=== PATIENT | male | born 1950 | race Hispanic/Latino ===

== ENCOUNTER → 2019-01-24 | Day surgery (SDC) | payer BC, MEDICARE ==
[2019-01-22 09:43] LABS: BASOPHILS % 0.7 % (0.0-1.0); EOSINOPHILS # (AUTO) 0.1 (0.0-0.4); EOSINOPHILS % 1.1 % (0.0-6.0); HEMATOCRIT 41.7 % (38.2-49.6); HEMOGLOBIN 13.9 g/dL (14.0-18.0); LYMPHOCYTES # (AUTO) 1.4 (1.0-3.2); LYMPHOCYTES % 32.4 % (18.0-39.1); MEAN CORPUSCULAR HEMOGLOBIN 29.1 pg (28-32); MEAN CORPUSCULAR HGB CONC 33.3 g/dL (31-35); MEAN CORPUSCULAR VOLUME 87.4 fL (81-99); MONOCYTES # (AUTO) 0.5 (0.2-0.8); MONOCYTES % 10.8 % (4.4-11.3); NEUTROPHILS # (AUTO) 2.4 (2.1-6.9); NEUTROPHILS % 54.8 % (38.7-80.0); PLATELET COUNT 182 x10e3/uL (140-360); RED BLOOD COUNT 4.77 x10e6/uL (4.3-5.7)
[2019-01-22 09:57] LABS: ANION GAP 12.1 mmol/L (8-16); BLOOD UREA NITROGEN 11 mg/dL (7-26); BUN/CREATININE RATIO 13 (6-25); CALCIUM 9.5 mg/dL (8.4-10.2); CARBON DIOXIDE 25 mmol/L (22-29); CHLORIDE 103 mmol/L (98-107); CREATININE, SERUM 0.85 mg/dL (0.72-1.25); EST GLOMERULAR FILTRATION RATE > 60 ML/MIN (60-); GLUCOSE 127 mg/dL (74-118); POTASSIUM 4.1 mmol/L (3.5-5.1); SODIUM 136 mmol/L (136-145)
--- NOTE | 2019-01-22 10:24 | Diagnostic Imaging Report ---
EXAMINATION: CHEST 2 VIEWS INDICATION: Pre-operative COMPARISON: None FINDINGS: LINES/TUBES:None LUNGS:The lungs are well-inflated. No focal consolidation or pulmonary edema. PLEURA:No pleural effusion or pneumothorax. MEDIASTINUM:The cardiomediastinal silhouette appears normal in size and shape. BONES/SOFT TISSUES:No acute osseous injury. Postoperative changes of the right shoulder. ABDOMEN:No free air under the diaphragm. IMPRESSION: No focal pneumonia or pulmonary edema. Signed by: Beata Li MD on 01/22/2019 10:20 AM
[~2019-01-24] MED LIST: ACETAMINOPHEN 1000 MG/100 ML 100 ML IV ONE; ACETAMINOPHEN 1000 MG/100 ML IV ONE; BUPIVACAINE HCL 0.5% INJ 30 ML VIAL INJ ONE; CEFAZOLIN SOD 1 GM/NS 50ML 100 ML IV ONE; CRESTOR20 MG; DEXAMETHASONE SOD PHOS INJ 4 MG/ML VIAL ONE; FENTANYL CITRATE/PF 100MCG/2 ML INJ ONE; GLIPIZIDE5 MG; HYDROCODON-ACE1 EAC9; JANUMET XR 50-1 EAC1 PO; LEVEMIR100 UNIT/1 SC; LIDOCAINE HCL 2% LOCAL INJ 5 ML SDV VIAL INJ ONE; METFORMIN HCL1000 MG; MIDAZOLAM HCL 2 MG/2 ML VIAL ONE; NEOSTIGMINE 1 MG/ML 10ML VIAL ONE; NOVOLOG SC; ONDANSETRON HCL INJ 2MG/ML 2ML 2 MG/ML VIAL ONE; ONGLYZA5 MG; PROPOFOL IV EMULSION 10 MG/ML 20 ML VIAL ONE; SEVOFLURANE INHAL SOLN 250 ML PEN BTL ONE
--- OUTSIDE RECORDS SUMMARY | 2019-01-24 11:31 | XMS REPORT ---
Author Author [facility] Address Unknown Phone Unavailable Care Team Providers Care Cashier Clerk Name Role Phone LATOSHA GREGORIO Unavailable Unavailable Problems This patient has no known problems. Allergies, Adverse Reactions, Alerts This patient has no known allergies or adverse reactions. Medications This patient has no known medications. Results Test Description Test Time Test Comments Text Results Atomic Results Result Comments CHEST 2 VIEWS 2019-01-22 10:20:00 [place] [address] Patient Name: JOSEPH WILSON MR #: [id number] : 1950 Age/Sex: 68/M Req #: [id number] Adm Physician: Ordered by: LATOSHA GREGORIO DPM Report #: [id number] Location: OR Room/Bed: Procedure: [id number] DX/CHEST 2 VIEWS Exam Date: 01/22/19 Exam Time: 0950 REPORT STATUS: Signed EXAMINATION: CHEST 2 VIEWS INDICATION: Pre-operative COMPARISON: None FINDINGS: LINES/TUBES:None LUNGS:The lungs are well-inflated. No focal consolidation or pulmonary edema. PLEURA:No pleural effusion or pneumothorax. MEDIASTINUM:The cardiomediastinal silhouette appears normal in size and shape. BONES/SOFT TISSUES:No acute osseous injury. Postoperative changes of the right shoulder. ABDOMEN:No free air under the diaphragm. IMPRESSION: No focal pneumonia or pulmonary edema. Signed by: Sami Li MD on 01/22/2019 10:20 AM Dictated By: SAMI LI MD 1020 Transcribed By: AGUSTÍN on 01/22/19 1020 COPY TO: LATOSHA GREGORIO DPM
[2019-01-24 14:25] VITALS: BP 135/87
--- NOTE | 2019-01-24 22:14 | Operative Report ---
DATE OF PROCEDURE: 01/24/2019 SURGEON: Akira Ordonez DPM PATIENT'S AGE: 68. ROOM NUMBER: [facility]. PREOPERATIVE DIAGNOSIS: Plantar fasciitis and plantar calcaneal spur left foot. POSTOPERATIVE DIAGNOSIS: Plantar fasciitis and plantar calcaneal spur left foot. TITLE OF OPERATION: Endoscopic plantar fasciotomy and resection of heel spur of the left foot. ANESTHESIA: General endotracheal. HEMOSTASIS: Left thigh tourniquet at 350 mmHg. PROCEDURE IN DETAIL: The patient was taken to the operating room in a mildly sedated state and placed on the operating table in supine position. Following induction of general anesthetic, the left lower extremity was elevated to 60 degrees to exsanguinate before inflating the pneumatic ankle tourniquet to 350 mmHg to create good hemostasis. Left lower extremity was placed on the operating table prior to performing the following procedure. Procedure #1: Endoscopic plantar fasciotomy of the left foot. An approximate 1 cm stab incision was placed on the medial aspect of the plantar fascia at the insertion of the plantar fascia into the medial plantar calcaneal tubercle. The incision was deepened via sharp and blunt dissection utilizing an appropriate cannula. The endoscopic device was directed across the plantar aspect of the plantar fascia exiting the wound in the foot laterally an additional 1 cm stab incision. Utilizing a scope and a hook knife, the medial and central bands of the plantar fascia were elongated the appropriate amount to offload the pressure that was irrigated with copious amounts of sterile saline solution. After endoscopic procedure was completed, the incision was extended via a J-shape up to the bone of the calcaneus. Utilizing a reciprocating rasp, the bone itself was rasped smooth. There it was then irrigated with copious amounts of sterile saline solution and the area was closed with 4-0 nylon. The areas of surgery were all blocked with 0.5 Marcaine. Decadron-LA human tissue allograft was injected to facilitate healing of the plantar fascia. The patient was placed in a posterior splint and he is to remain nonweightbearing for 3 to 5 days and will return to see me within 1 week postoperatively. DAVINA Abad/AJ /[id number]
== END | disposition home or self-care (01) ==
LOC: OR 11:29
PROVIDERS: ATTEND Podiatrist Foot Surgery
DX: M72.2 Plantar fascial fibromatosis (principal); M77.32 Calcaneal spur, left foot; E11.9 Type 2 diabetes mellitus without complications; I49.3 Ventricular premature depolarization; Z88.8 Allergy status to other drugs, medicaments and biological substances; Z01.810 Encounter for preprocedural cardiovascular examination; Z01.812 Encounter for preprocedural laboratory examination; Z01.818 Encounter for other preprocedural examination; Z79.4 Long term (current) use of insulin
CPT/HCPCS: 28104; 29893; 36415 ×2; 71046; 80048; 82948; 85025; 93005; J0131; J0690; J1100; J2001; J2250; J2405; J2704; J2710; J3010; Q4100; 76000

== ENCOUNTER → 2021-05-05 | Day surgery (SDC) | payer BC ==
[2021-04-29 11:27] LABS: BASOPHILS # (AUTO) 0.1 (0.0-0.1); BASOPHILS % 0.7 % (0.0-1.0); EOSINOPHILS # (AUTO) 0.1 (0.0-0.4); EOSINOPHILS % 1.1 % (0.0-6.0); HEMATOCRIT 42.7 % (38.2-49.6); HEMOGLOBIN 13.9 g/dL (14.0-18.0); LYMPHOCYTES # (AUTO) 1.8 (1.0-3.2); LYMPHOCYTES % 25.6 % (18.0-39.1); MEAN CORPUSCULAR HEMOGLOBIN 28.7 pg (28-32); MEAN CORPUSCULAR HGB CONC 32.6 g/dL (31-35); MONOCYTES # (AUTO) 0.6 (0.2-0.8); MONOCYTES % 8.3 % (4.4-11.3); NEUTROPHILS # (AUTO) 4.6 (2.1-6.9); PLATELET COUNT 190 x10e3/uL (140-360); RED BLOOD COUNT 4.85 x10e6/uL (4.3-5.7); RED CELL DISTRIBUTION WIDTH 12.2 % (11.7-14.4)
[2021-04-29 11:46] LABS: ANION GAP 13.2 mmol/L (8-16); CALCIUM 9.2 mg/dL (8.4-10.2); CREATININE, SERUM 1.02 mg/dL (0.72-1.25); POTASSIUM 4.2 mmol/L (3.5-5.1)
[~2021-05-05] MED LIST changes: +ACETAMINOPHEN-1 EAC4 PO; +AFRIN15 ML INH; -CEFAZOLIN SOD 1 GM/NS 50ML 100 ML IV ONE; -CRESTOR20 MG; +CRESTOR20 MG PO; -DEXAMETHASONE SOD PHOS INJ 4 MG/ML VIAL ONE; +EPHEDRINE SULFATE INJ 50 MG/ML VIAL ONE; +JANUMET XR 1001 EACH PO; -MIDAZOLAM HCL 2 MG/2 ML VIAL ONE; +MUPIROCIN 2% OINT 22 GM TUBE ONE; -NEOSTIGMINE 1 MG/ML 10ML VIAL ONE; +SODIUM CHLORIDE 0.9% 50ML 100 ML ONE; +TRESIBA100 UNIT/1 SQ
[2021-05-05 08:50] VITALS: BP 157/82
== END | disposition home or self-care (01) ==
LOC: OR 06:11 → EDSTATUS 07:00
PROVIDERS: ATTEND Plastic Surgery
DX: M65.341 Trigger finger, right ring finger (principal); M65.342 Trigger finger, left ring finger; M65.322 Trigger finger, left index finger; E11.9 Type 2 diabetes mellitus without complications; I10 Essential (primary) hypertension; Z01.810 Encounter for preprocedural cardiovascular examination; Z01.812 Encounter for preprocedural laboratory examination; Z01.818 Encounter for other preprocedural examination; Z79.4 Long term (current) use of insulin; Z79.899 Other long term (current) drug therapy
CPT/HCPCS: 26055 ×3; 36415 ×2; 71046; 80048; 82948; 85025; 93005; J0131; J0690; J2001; J2405; J2704; J3010

== ENCOUNTER → 2021-11-01 | Outpatient (CLI) | payer OTHER ==
[~2021-11-01] MED LIST changes: -ACETAMINOPHEN 1000 MG/100 ML 100 ML IV ONE; -ACETAMINOPHEN 1000 MG/100 ML IV ONE; -BUPIVACAINE HCL 0.5% INJ 30 ML VIAL INJ ONE; -EPHEDRINE SULFATE INJ 50 MG/ML VIAL ONE; -FENTANYL CITRATE/PF 100MCG/2 ML INJ ONE; -LIDOCAINE HCL 2% LOCAL INJ 5 ML SDV VIAL INJ ONE; -MUPIROCIN 2% OINT 22 GM TUBE ONE; -ONDANSETRON HCL INJ 2MG/ML 2ML 2 MG/ML VIAL ONE; -PROPOFOL IV EMULSION 10 MG/ML 20 ML VIAL ONE; -SEVOFLURANE INHAL SOLN 250 ML PEN BTL ONE; -SODIUM CHLORIDE 0.9% 50ML 100 ML ONE
== END ==
LOC: MRI 07:55
PROVIDERS: ATTEND Family Medicine
DX: S39.012D Strain of muscle, fascia and tendon of lower back, subsequent encounter (principal)
CPT/HCPCS: 72148